=== PATIENT | female | born 1950 | race American Indian/Alaskan Native ===

== ENCOUNTER 2017-12-16 10:15 | Outpatient (CLI) | payer MEDICARE ==
--- NOTE | 2017-12-17 10:01 | Mammography Report ---
BONE DEXA:12/16/17 10:30:00 CLINICAL: Postmenopausal COMPARISON: 11/22/11 TECHNIQUE: Two site bone DEXA performed on an Hologic scanner. FINDINGS: The average BMD of the lumbar spine L1-L4 is 0.911g/cm squared with a T-score of -1.2 and a Z score of +0.1. This compares to 0.802 g/cm squared on the last exam and represents a +13.7% change in BMD compared to baseline. The average BMD of the left hip is 0.930g/cm squared with a T-score of -0.1 and a Z score of +0.2.This compares to 0.861g/cm squared on the last exam and represents a +8.0% change in BMD compared to baseline. IMPRESSION: 1. WHO classification: Osteopenia with increased fracture risk based on lumbar spine measurements. However, a pronounced increase in spine BMD compared to baseline. 2. WHO classification: Normal with average fracture risk based on left hip measurements. A significant increase in left hip BMD compared to baseline. RECOMMENDATION: Clinical correlation and routine screening. DEFINITIONS: BMD = Bone Mineral Density T-score = BMD related to mean peak bone mass of young adult (mean expressed in Standard Deviation) Z-score = Age matched BMD expressed in SD World Health Organization (WHO) Diagnostic Criteria Normal T-score > -1 SD Osteopenia T-score between -1 and -2.4 SD Osteoporosis T-score -2.5 SD or below NOTE: BMD is not the only risk factor for fracture; also consider factors such as the patient's age, risk of falling, previous osteoporotic fracture, family history of osteoporotic fractures, current smoker, and low body weight. All treatment decisions require clinical judgment and consideration of individual patient factors, including patient preferences, comorbidities, previous drug use and wrist factors not captured in the FRAX model (e.g. frailty, falls, vitamin D deficiency, increased bone turnover, interval significant decline in BMD). Z-scores are not calculated if >80 years of age.
== END 2017-12-16 10:16 | disposition home or self-care (01) ==
LOC: MAMMO 10:15
PROVIDERS: ATTEND Internal Medicine
DX: M81.0 Age-related osteoporosis without current pathological fracture (principal); M85.88 Other specified disorders of bone density and structure, other site; Z78.0 Asymptomatic menopausal state
CPT/HCPCS: 77080